=== PATIENT | male | born 1960 | race Caucasian/White ===

== ENCOUNTER 2020-01-08 14:05 | Emergency (ER) | payer SELFPAY ==
[~2020-01-08] VITALS: Ht 167 cm; Wt 84.0 kg
[2020-01-08 15:09] LABS: BASOPHILS # (AUTO) 0.1 10^3/uL (0.0-0.1); BASOPHILS % (AUTO) 1 % (0-10); EOSINOPHILS # (AUTO) 0.2 10^3/uL (0.0-0.3); EOSINOPHILS % (AUTO) 2 % (0-10); HEMATOCRIT 43 % (40-54); HEMOGLOBIN 15.2 G/DL (13.3-17.7); LYMPHOCYTES # (AUTO) 1.6 X 10^3 (1.0-4.0); LYMPHOCYTES % (AUTO) 20 % (12-44); MEAN CORPUSCULAR HEMOGLOBIN 31 PG (25-34); MEAN CORPUSCULAR HGB CONC 35 G/DL (32-36); MEAN CORPUSCULAR VOLUME 87 FL (80-99); MEAN PLATELET VOLUME 11.8 FL (7.4-10.4); MONOCYTES % (AUTO) 12 % (0-12); NEUTROPHILS # (AUTO) 5.1 X 10^3 (1.8-7.8); NEUTROPHILS % (AUTO) 65 % (42-75); PLATELET COUNT 157 10^3/uL (130-400); RED CELL DISTRIBUTION WIDTH 12.6 % (10.0-14.5); WHITE BLOOD COUNT 7.8 10^3/uL (4.3-11.0)
[2020-01-08 15:19] LABS: INR 0.9 (0.8-1.4); PROTHROMBIN TIME PATIENT 12.9 SEC (12.2-14.7)
--- NOTE | 2020-01-08 15:20 | Diagnostic Imaging Report ---
INDICATION: Chest and left arm pain. FINDINGS: Two views. Lungs are clear. No air-trapping. Heart is not enlarged. No pulmonary edema. No pneumothorax or pleural effusion. No bony abnormalities. IMPRESSION: Normal PA and lateral chest. Dictated by: Dictated on workstation # [id number]
[2020-01-08 15:29] LABS: ALANINE AMINOTRANSFERASE 25 U/L (0-55); ALBUMIN 4.3 GM/DL (3.2-4.5); ALKALINE PHOSPHATASE 80 U/L (40-136); BILIRUBIN,TOTAL 0.4 MG/DL (0.1-1.0); BUN/CREATININE RATIO 14; CALCIUM 9.6 MG/DL (8.5-10.1); CARBON DIOXIDE 26 MMOL/L (21-32); CHLORIDE 102 MMOL/L (98-107); GFR ESTIMATED > 60; GLUCOSE 96 MG/DL (70-105); MAGNESIUM 2.1 MG/DL (1.6-2.4); POTASSIUM 4.3 MMOL/L (3.6-5.0); SODIUM 137 MMOL/L (135-145)
[2020-01-08] MEDS ORDERED: ASPIRIN 81 MG CHEW (CHILDREN'S ASA) PO ONE (16:30)
--- NOTE | 2020-01-08 17:14 | ED Chest Pain ---
General Chief Complaint: Cardiac/General Problems Stated Complaint: TIRED/SOB AND CP ON AND OFF X 6 MONTHS Nursing Triage Note: pt presents to ed with complaints of intermittent cp, malaise, weakness, soa, and l arm pain x 6 months. Nursing Sepsis Screen: No Definite Risk Source: patient Exam Limitations: no limitations History of Present Illness Date Seen by Provider: Jan 08, 2020 Time Seen by Provider: 15:59 Initial Comments This 59-year-old gentleman presents to the emergency room with complaints of chest pain intermittently for about the past 6 months. Yesterday he was digging a hole and noted the chest pain to get worse. He also has pain in the left arm and shoulder but notes that this is only present when he moves his shoulder and therefore seems more musculoskeletal in nature. He also describes increasing shortness of air in the past several months especially with activity. He has generally been feeling more fatigued recently. He denies any alcohol or tobacco use. He was previously an alcoholic and quit about 10 years ago. He had a brief relapse about 18 months ago for about one week. He quit smoking in 2009. He now chews tobacco. He is not experiencing chest pain at present. His primary care provider is the [facility] in [place]. He denies any known cardiac history. He has tentatively been diagnosed with COPD. Allergies and Home Medications Allergies Coded Allergies: No Known Drug Allergies (Unverified , 01/08/20) Home Medications No Active Prescriptions or Reported Meds Patient Home Medication List Home Medication List Reviewed: Yes Review of Systems Review of Systems Constitutional: no symptoms reported EENTM: No Symptoms Reported Respiratory: See HPI Cardiovascular: See HPI Gastrointestinal: No Symptoms Reported Genitourinary: No Symptoms Reported Musculoskeletal: see HPI Skin: no symptoms reported Psychiatric/Neurological: No Symptoms Reported Endocrine: No Symptoms Reported Hematologic/Lymphatic: No Symptoms Reported Past Ljjuica-Tvsuua-Xofnmu Hx Past Med/Social Hx: Reviewed and Corrections made Patient Social History Alcohol Use: Denies Use Recreational Drug Use: No Smoking Status: Former Smoker Type Used: Smokeless Tobacco Former Smoker, Quit: Dec 28, 2018 Recent Foreign Travel: No Contact w/Someone Who Travel: No Recent Infectious Disease Expo: No Recent Hopitalizations: No Physical Abuse: No Sexual Abuse: No Mistreated: No Fear: No Seasonal Allergies Seasonal Allergies: No Past Medical History Surgeries: Yes (cervical sx) Appendectomy, Orthopedic Respiratory: Yes COPD Cardiac: No Neurological: No Genitourinary: No Gastrointestinal: No Musculoskeletal: Yes Fractures (Cervical spine fracture status post external fixation with halo) Endocrine: No HEENT: No Cancer: No Psychosocial: Yes Depression Integumentary: No Physical Exam Vital Signs Vital Signs - First Documented 01/08/20 14:20 Temp 36.8 Pulse 54 Resp 18 B/P (MAP) 137/84 (101) Pulse Ox 97 Capillary Refill : Less Than 3 Seconds Height, Weight, BMI Height: '" Weight: lbs. oz. kg; 30.00 BMI Method: General Appearance: No Apparent Distress, WD/WN HEENT: PERRL/EOMI, Normal ENT Inspection Neck: Normal Inspection; No JVD Respiratory: Lungs Clear, Normal Breath Sounds, No Accessory Muscle Use, No Respiratory Distress Cardiovascular: Regular Rate, Rhythm, No Edema, No Murmur, Normal Peripheral Pulses Gastrointestinal: Normal Bowel Sounds, Non Tender, Soft Extremity: Normal Inspection, Calf Tenderness (Left calf), Other (Left shoulder pain with range of motion) Neurologic/Psychiatric: Alert, Oriented x3, No Motor/Sensory Deficits, Normal Mood/Affect, oxygen therapist II-XII Norm as Tested Skin: Normal Color, Warm/Dry Progress/Results/Core Measures Results/Orders Lab Results Laboratory Tests Test 01/08/20 14:55 Range/Units White Blood Count 7.8 4.3-11.0 10^3/uL Red Blood Count 4.93 4.35-5.85 10^6/uL Hemoglobin 15.2 13.3-17.7 G/DL Hematocrit 43 40-54 % Mean Corpuscular Volume 87 80-99 FL Mean Corpuscular Hemoglobin 31 25-34 PG Mean Corpuscular Hemoglobin Concent 35 32-36 G/DL Red Cell Distribution Width 12.6 10.0-14.5 % Platelet Count 157 130-400 10^3/uL Mean Platelet Volume 11.8 H 7.4-10.4 FL Neutrophils (%) (Auto) 65 42-75 % Lymphocytes (%) (Auto) 20 12-44 % Monocytes (%) (Auto) 12 0-12 % Eosinophils (%) (Auto) 2 0-10 % Basophils (%) (Auto) 1 0-10 % Neutrophils # (Auto) 5.1 1.8-7.8 X 10^3 Lymphocytes # (Auto) 1.6 1.0-4.0 X 10^3 Monocytes # (Auto) 1.0 0.0-1.0 X 10^3 Eosinophils # (Auto) 0.2 0.0-0.3 10^3/uL Basophils # (Auto) 0.1 0.0-0.1 10^3/uL Prothrombin Time 12.9 12.2-14.7 SEC INR Comment 0.9 0.8-1.4 Activated Partial Thromboplast Time 29 24-35 SEC D-Dimer 0.21 0.00-0.49 UG/ML Sodium Level 137 135-145 MMOL/L Potassium Level 4.3 3.6-5.0 MMOL/L Chloride Level 102 98-107 MMOL/L Carbon Dioxide Level 26 21-32 MMOL/L Anion Gap 9 5-14 MMOL/L Blood Urea Nitrogen 15 7-18 MG/DL Creatinine 1.10 0.60-1.30 MG/DL Estimat Glomerular Filtration Rate > 60 BUN/Creatinine Ratio 14 Glucose Level 96 70-105 MG/DL Calcium Level 9.6 8.5-10.1 MG/DL Corrected Calcium 9.4 8.5-10.1 MG/DL Magnesium Level 2.1 1.6-2.4 MG/DL Total Bilirubin 0.4 0.1-1.0 MG/DL Aspartate Amino Transf (AST/SGOT) 21 5-34 U/L Alanine Aminotransferase (ALT/SGPT) 25 0-55 U/L Alkaline Phosphatase 80 40-136 U/L Myoglobin 54.2 10.0-92.0 NG/ML Troponin I < 0.028 <0.028 NG/ML C-Reactive Protein High Sensitivity 0.20 0.00-0.50 MG/DL B-Type Natriuretic Peptide 15.5 <100.0 PG/ML Total Protein 7.0 6.4-8.2 GM/DL Albumin 4.3 3.2-4.5 GM/DL My Orders Orders - MARKO DUENAS MD Cbc With Automated Diff (01/08/20 14:34) Magnesium (01/08/20 14:34) Ekg Tracing (01/08/20 14:34) Comprehensive Metabolic Panel (01/08/20 14:34) Myoglobin Serum (2/16/20 14:34) Protime With Inr (01/08/20 14:34) Partial Thromboplastin Time (01/08/20 14:34) O2 (01/08/20 14:34) Monitor-Rhythm Ecg Trace Only (01/08/20 14:34) Ed Iv/Invasive Line Start (01/08/20 14:34) BNP (01/08/20 14:34) Chest Pa/Lat (2 View) (01/08/20 14:34) Hs C Reactive Protein (01/08/20 14:34) Troponin I (01/08/20 14:34) Fibrin Degradation Products (01/08/20 16:15) Aspirin Chewable Tablet (Baby Aspirin Ch (01/08/20 16:30) Medications Given in ED Current Medications Medications Dose Ordered Sig/Carloz Route Start Time Stop Time Status Last Admin Dose Admin Aspirin 324 mg ONCE ONCE PO 01/08/20 16:30 01/08/20 16:31 DC 01/08/20 16:29 324 MG Vital Signs/I&O 01/08/20 01/08/20 14:20 17:20 Temp 36.8 Pulse 54 87 Resp 18 20 B/P (MAP) 137/84 (101) 136/93 Pulse Ox 97 98 Blood Pressure Mean: 101 Progress Progress Note : Progress Note Chest pain workup was pursued. Aspirin was given. Workup was unremarkable. Patient did report tenderness in the left calf. D-dimer was obtained and was negative. Case was discussed with Dr. Kaba who recommended close follow-up in the clinic. See discharge instructions. Initial ECG Impression Date: Jan 08, 2020 Initial ECG Impression Time: 14:30 Initial ECG Rate: 54 Initial ECG Rhythm: Normal Sinus Initial ECG Intervals: Normal Initial ECG Impression: Normal Comment Normal sinus rhythm with no ST elevation or depression. No abnormal intervals or axis deviation. Diagnostic Imaging Diagonstic Imaging: Xray Plain Films/CT/US/NM/MRI: chest Comments NAME: JARETT ALEXANDRE MED REC#: [id number] PT STATUS: REG ER : 1960 PHYSICIAN: MARKO DUENAS MD ADMIT DATE: 01/08/20/ER Signed Date of Exam:01/08/20 CHEST PA/LAT (2 VIEW) INDICATION: Chest and left arm pain. FINDINGS: Two views. Lungs are clear. No air-trapping. Heart is not enlarged. No pulmonary edema. No pneumothorax or pleural effusion. No bony abnormalities. IMPRESSION: Normal PA and lateral chest. Dictated by: Dictated on workstation # [id number] Dict: 01/08/20 1515 Trans: 01/08/20 1544 [id number] Interpreted by: TANNA PENA MD Electronically signed by: TANNA PENA MD 01/08/20 1544 Departure Impression Primary Impression: Chest pain Qualified Codes: R07.9 - Chest pain, unspecified Additional Impression: Dyspnea on exertion Disposition: HOME, SELF-CARE Condition: Stable Departure-Patient Inst. Decision time for Depature: 17:13 Referrals: MISAEL KABA MD ,LOCAL PHYSICIAN (PCP) Primary Care Physician Patient Instructions: Chest Pain (DC) Add. Discharge Instructions: Take aspirin 81 mg daily. Follow-up with Dr. Kaba (hearing examiner) and your primary care provider as soon as possible. Please call Dr. Kaba's office first thing tomorrow morning. If you have any further chest pain, please rest and stop whenever you're doing. If pain does not resolve after a few minutes, return to the emergency room. Return to care if you have any further problems or concerns. All discharge instructions reviewed with patient and/or family. Voiced understanding. Scripts No Active Prescriptions or Reported Meds Copy Copies To 1: COTY BRANTLEY DO Copies To 2: MISAEL KABA MD, JOSHUA T MD Jan 08, 2020 17:14
[2020-01-08 17:20] VITALS: BP 136/93
== END 2020-01-08 17:20 | disposition home or self-care (01) ==
LOC: EDUNIT# 14:05 → ER 14:07
DX: R07.9 Chest pain, unspecified (principal); R06.09 Other forms of dyspnea; F17.220 Nicotine dependence, chewing tobacco, uncomplicated
CPT/HCPCS: 36415; 71046; 80053; 83735; 83874; 83880; 84484; 85025; 85379; 85610; 85730; 86141; 93005; 93041

== ENCOUNTER → 2020-01-25 | Outpatient (CLI) | payer OTHER ==
[~2020-01-25] VITALS: Ht 165 cm; Wt 91.0 kg
[~2020-01-25] MED LIST: CATHETER FLUSH 10 ML SYR IV PRN; REGADENOSON 0.4 MG/5 ML SYR (LEXISCAN) IV ONE
[2020-01-25 08:50] VITALS: BP 112/77
--- NOTE | 2020-01-25 19:00 | STRESS TEST ---
DATE OF SERVICE: 01/25/2020 LEXISCAN MYOVIEW STRESS TEST REPORT Baseline heart rate is 46. Baseline blood pressure 106/81. Baseline EKG is sinus rhythm with no ischemic changes. In summary, the patient was initially scheduled for exercise stress test, was unable to achieve target heart rate. Test was converted to Lexiscan Myoview stress test. The patient received 0.4 mg of Lexiscan followed by 30.9 mCi of technetium-99 Myoview. Throughout the test, there were no EKG changes. The resting and stress images were reviewed and compared. There is no significant ischemia or infarction. SSS is 3, SDS 1. TID value 0.93. On the gated images, the left ventricle appeared to be normal size with normal contractility. Calculated ejection fraction 62%. CONCLUSION: 1. The patient tolerated Lexiscan well. 2. No significant ischemia or infarction on SPECT images. 3. Normal left ventricular size with normal contractility. Calculated ejection fraction 62%. Job ID: [id number] DocumentID: [id number] Dictated Date: 01/25/2020 16:00:28 Garment Liner Date: 01/25/2020 18:59:54 Dictated By: MISAEL JUAN MD
== END ==
LOC: CARD 07:14
PROVIDERS: ATTEND Internal Medicine Cardiovascular Disease
DX: I10 Essential (primary) hypertension (principal); E66.9 Obesity, unspecified; R07.89 Other chest pain; R06.09 Other forms of dyspnea
CPT/HCPCS: 78452; 93017

== ENCOUNTER → 2020-01-27 | Outpatient (CLI) | payer OTHER | LOC: CARD 09:40 | PROVIDERS: ATTEND Internal Medicine Cardiovascular Disease | DX: I10 Essential (primary) hypertension (principal); E66.9 Obesity, unspecified; R07.89 Other chest pain; R06.09 Other forms of dyspnea | CPT/HCPCS: 93306 ==

== ENCOUNTER → 2020-03-28 | Outpatient (CLI) | payer MEDICAID ==
[~2020-03-28] MED LIST changes: -CATHETER FLUSH 10 ML SYR IV PRN; +HOLD METFORMIN - RECEIVED CONTRAST 20 ML VIAL IV SCH; +IOHEXOL 350 MG/ML 100 ML (OMNIPAQUE 350) VIAL IV ONE; +NS 100 ML (IVPB) BAG IV ONE; -REGADENOSON 0.4 MG/5 ML SYR (LEXISCAN) IV ONE
[2020-03-28 07:49] LABS: CREATININE SERUM 1.23 MG/DL (0.60-1.30)
--- NOTE | 2020-03-28 09:10 | Diagnostic Imaging Report ---
PROCEDURE: CT chest with contrast only. TECHNIQUE: Multiple contiguous axial images were obtained through the chest after administration of intravenous contrast. Auto Exposure Controls were utilized during the CT exam to meet ALARA standards for radiation dose reduction. INDICATION: Shortness of breath on exertion. FINDINGS: There are no discrete pulmonary nodules, masses or infiltrates. There is no pleural or pericardial fluid. There is no pneumothorax. There is no pathologically enlarged adenopathy in the chest. Ascending aorta measures up to 3.9 cm. There is no dissection. There are minimal coronary artery calcifications. There are several nonobstructing stones in the right kidney. Largest measures up to 1.2 cm. There are degenerative changes in the spine. IMPRESSION: Enlargement of the ascending aorta up to 3.9 cm. Minimal coronary artery calcifications. Nonobstructing right renal calculi. No other acute abnormality in the chest. Dictated by: Dictated on workstation # [id number]
== END ==
LOC: RAD 07:15
PROVIDERS: ATTEND Nurse Practitioner Family
DX: J44.9 Chronic obstructive pulmonary disease, unspecified (principal); R06.09 Other forms of dyspnea; Z87.891 Personal history of nicotine dependence; N20.0 Calculus of kidney
CPT/HCPCS: 36415; 71260; 82565; 84520

== ENCOUNTER → 2020-04-09 | Outpatient (CLI) | payer MEDICAID ==
[~2020-04-09] MED LIST changes: -HOLD METFORMIN - RECEIVED CONTRAST 20 ML VIAL IV SCH; -IOHEXOL 350 MG/ML 100 ML (OMNIPAQUE 350) VIAL IV ONE; -NS 100 ML (IVPB) BAG IV ONE; +RT-ALBUTEROL SULF 2.5 MG/3 ML PRE-MIX VIAL INH ONE; +RT-ALBUTEROL SULF 2.5 MG/3 ML PRE-MIX VIAL ONE
[2020-04-09 09:31] LABS: ABG OXYGEN SATURATION 98 % (94-100); ABG PCO2 39 MMHG (35-45); ABG PH 7.39 (7.37-7.43); ABG PO2 92 MMHG (79-93); ABG TCO2 24.6 MMOL/L (21.0-31.0)
[2020-04-09 09:32] LABS: ALLENS TEST YES-POS; INSPIRED O2 ROOM AIR; PATIENT TEMP 36.2; VENTILATOR NO
== END ==
LOC: RT 07:36
PROVIDERS: ATTEND Nurse Practitioner Family
DX: J44.9 Chronic obstructive pulmonary disease, unspecified (principal); Z87.891 Personal history of nicotine dependence
CPT/HCPCS: 36600; 82805; 94060; 94726; 94729

== ENCOUNTER → 2020-07-24 | Outpatient (CLI) | payer OTHER ==
--- NOTE | 2020-07-24 12:53 | Diagnostic Imaging Report ---
INDICATION: Chronic low back pain. FINDINGS: The alignment of the lumbar spine is normal. There are some degenerative osteophytes anteriorly. There is lower lumbar hypertrophic degenerative facet disease. There is no spondylolysis or spinal listhesis. No fractures are identified. There is a stone in the right kidney. IMPRESSION: Lower lumbar spondylosis and facet disease as described. Right nephrolithiasis. Dictated by: Dictated on workstation # [id number]
== END ==
LOC: RAD 10:20
PROVIDERS: ATTEND Family Medicine
DX: M47.816 Spondylosis without myelopathy or radiculopathy, lumbar region (principal); M46.96 Unspecified inflammatory spondylopathy, lumbar region
CPT/HCPCS: 72100

== ENCOUNTER → 2020-09-03 | Outpatient (CLI) | payer MEDICAID | LOC: LABNPT 05:41 | PROVIDERS: ATTEND Nurse Practitioner Family | DX: Z01.812 Encounter for preprocedural laboratory examination (principal); Z20.828 Contact with and (suspected) exposure to other viral communicable diseases | CPT/HCPCS: 87635 ==

== ENCOUNTER → 2020-09-24 | Outpatient (CLI) | payer MEDICAID | LOC: LABNPT 08:21 | PROVIDERS: ATTEND Internal Medicine Critical Care Medicine | DX: Z01.812 Encounter for preprocedural laboratory examination (principal); Z20.828 Contact with and (suspected) exposure to other viral communicable diseases | CPT/HCPCS: 87635 ==

== ENCOUNTER 2020-09-26 19:30 | Outpatient (CLI) | payer MEDICAID | END 2020-09-27 05:25 | disposition home or self-care (01) | LOC: SLEEP 19:30 | PROVIDERS: ATTEND Nurse Practitioner Family | DX: G47.50 Parasomnia, unspecified (principal); G47.10 Hypersomnia, unspecified; J44.9 Chronic obstructive pulmonary disease, unspecified; Z20.828 Contact with and (suspected) exposure to other viral communicable diseases | CPT/HCPCS: 95810 ==

== ENCOUNTER 2020-11-01 21:43 | Emergency (ER) | payer MEDICAID ==
[~2020-11-01] VITALS: Ht 167.7 cm; Wt 84.8 kg
[2020-11-01] MEDS ORDERED: FLUORESCEIN (FLUOR-I-STRIPS) 1 MG STRP ONE (21:58)
[2020-11-01] MEDS ORDERED: TETRACAINE 0.5% OPHTH SOLN 4 ML BTL (SINGLE DOSE ONLY) OU ONE (22:00)
[2020-11-01] MEDS ORDERED: BSS 15 ML IR ONE (22:00)
[2020-11-01] MEDS ORDERED: FLUORESCEIN (FLUOR-I-STRIPS) 1 MG STRP OU ONE (22:00)
--- NOTE | 2020-11-01 22:44 | ED EENT ---
History of Present Illness General Chief Complaint: Eye Problems Stated Complaint: PIECE OF METAL IN EYE Source: patient Exam Limitations: no limitations History of Present Illness Date Seen by Provider: Nov 01, 2020 Time Seen by Provider: 21:55 Initial Comments This 60-year-old gentleman presents to the emergency room with sensation of foreign body in his right eye. It is very irritating to blink. He was grinding some metal earlier in the day without eye protection. Then while he was watching TV he suddenly developed the pain. Allergies and Home Medications Allergies Coded Allergies: No Known Drug Allergies (Unverified , 01/08/20) Patient Home Medication List Home Medication List Reviewed: Yes Review of Systems Review of Systems Constitutional: no symptoms reported Eyes: See HPI Ears: No Symptoms Reported Nose: no symptoms reported Mouth: no symptoms reported Throat: no symptoms reported Skin: no symptoms reported Neurological: No Symptoms Reported Past Xkecqik-Mauhix-Zukdno Hx Past Med/Social Hx: Reviewed Nursing Past Med/Soc Hx Patient Social History Type Used: Smokeless Tobacco Former Smoker, Quit: Dec 28, 2018 Recent Foreign Travel: No Contact w/Someone Who Travel: No Recent Hopitalizations: No Seasonal Allergies Seasonal Allergies: No Past Medical History Surgeries: Yes (cervical sx) Appendectomy, Orthopedic Respiratory: Yes COPD Cardiac: No Neurological: No Genitourinary: No Gastrointestinal: No Musculoskeletal: Yes Fractures Endocrine: No HEENT: No Cancer: No Psychosocial: Yes Depression Integumentary: No Physical Exam Vital Signs Vital Signs - First Documented 11/01/20 21:55 Temp 36.6 Pulse 66 Resp 18 B/P (MAP) 145/84 (104) Pulse Ox 96 Height, Weight, BMI Height: '" Weight: lbs. oz. kg; 33.42 BMI Method: General Appearance: WD/WN, no apparent distress Eyes: right eye other (Mild scleral irritation. 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 Eye was anesthetized with tetracaine. The eye was then examined under magnification. Foreign body was identified under the lateral aspect of the upper eyelid when it was lifted. Balanced saline was used to irrigate the space but did not successfully remove the foreign body. Foreign body was then lifted with a sterile Q-tip. Eye was again irrigated and patient was discharged. Departure Impression Primary Impression: Eye foreign body Qualified Codes: T15.92XA - Foreign body on external eye, part unspecified, left eye, initial encounter Disposition: 01 HOME, SELF-CARE Condition: Improved Departure-Patient Inst. Decision time for Depature: 22:43 Referrals: [facility] (PCP/Family) Primary Care Physician Patient Instructions: Foreign Body in Eye (DC) Add. Discharge Instructions: Your pain should gradually improve now that the foreign body is removed. You may use artificial tears liberally to help lubricate your eye. If pain does not progressively improve or you have worsening of symptoms, please return to the ER or call your eye doctor. All discharge instructions reviewed with patient and/or family. Voiced understanding. MARKO DUENAS MD Nov 01, 2020 22:43
[2020-11-01 22:50] VITALS: BP 141/73
== END 2020-11-01 22:53 | disposition home or self-care (01) ==
LOC: EDUNIT# 21:43 → ER 21:45
DX: T15.11XA Foreign body in conjunctival sac, right eye, initial encounter (principal); Z87.891 Personal history of nicotine dependence; W45.8XXA Other foreign body or object entering through skin, initial encounter
CPT/HCPCS: 99282

== ENCOUNTER 2020-12-11 20:43 | Emergency (ER) | payer MEDICAID ==
[~2020-12-11] VITALS: Ht 65 cm; Wt 90.0 kg
[2020-12-11 20:46] VITALS: BP 142/83
--- NOTE | 2020-12-11 21:09 | ED GU-Female ---
General Chief Complaint: - Urinary Stated Complaint: URINARY PAIN, HARD TO URINATE Nursing Triage Note: went to clinic yesterday bc he is having trouble urinating. He was put on antibiotics. Today is much worse. He has the frequent urge then doesn't get much output. Pt states there is pain when he tries to urinate. Denies bleeding. Nursing Sepsis Screen: No Definite Risk Source: patient Exam Limitations: no limitations History of Present Illness Date Seen by Provider: Dec 11, 2020 Time Seen by Provider: 20:55 Initial Comments Patient arrives ER by private conveyance with chief complaint that yesterday he went to [facility] with chief complaint of a days worth of difficulty urinating burning pain. He is never had these problems before. No history of prostatitis. Does not know a urologist. He is not on Flomax. They put him on Bactrim thinking he might have prostatitis and told him to come back if it was not getting better or he was unable to urinate. Today he has not been able to urinate more than just a few drops and has increasing pressure and pain. Allergies and Home Medications Allergies Coded Allergies: No Known Drug Allergies (Unverified , 01/08/20) Patient Home Medication List Home Medication List Reviewed: Yes Review of Systems Review of Systems Constitutional: No chills, No diaphoresis EENTM: No ear discharge, No ear pain Respiratory: No cough, No short of breath Cardiovascular: No chest pain, No palpitations Gastrointestinal: abdominal pain; No constipation, No diarrhea, No nausea, No vomiting Genitourinary: see HPI, dysuria, frequency, pain Musculoskeletal: No back pain, No joint pain All Other Systemes Reviewed Negative Unless Noted: Yes Past Rkmzamg-Whorkp-Ehudei Hx Patient Social History Alcohol Use: Denies Use Smoking Status: Former Smoker Type Used: Smokeless Tobacco Former Smoker, Quit: Dec 28, 2018 Recent Infectious Disease Expo: No Recent Hopitalizations: No Seasonal Allergies Seasonal Allergies: No Past Medical History Surgeries: Yes (cervical sx) Appendectomy, Orthopedic Respiratory: Yes COPD Cardiac: No Neurological: No Genitourinary: No Gastrointestinal: No Musculoskeletal: Yes Fractures Endocrine: No HEENT: No Cancer: No Psychosocial: Yes Depression Integumentary: No Blood Disorders: No Physical Exam Vital Signs Vital Signs - First Documented 12/11/20 20:46 Temp 36.5 Pulse 70 Resp 20 B/P (MAP) 142/83 (102) Pulse Ox 97 O2 Delivery Room Air Capillary Refill : Less Than 3 Seconds Height, Weight, BMI Height: '" Weight: lbs. oz. kg; 213.00 BMI Method: General Appearance: WD/WN, no apparent distress HEENT: PERRL/EOMI, normal ENT inspection Neck: full range of motion, supple, normal inspection Cardiovascular: normal peripheral pulses, regular rate, rhythm Respiratory: lungs clear, normal breath sounds, no respiratory distress, no accessory muscle use Gastrointestinal: normal bowel sounds, soft, no organomegaly, tenderness (Mild suprapubic tenderness without palpable bladder) Progress/Results/Core Measures Suspected Sepsis Recent Fever Within 48 Hours: No Infection Criteria Present: Suspected New Infection New/Unexplained Altered Menta: No Sepsis Screen: No Definite Risk SIRS Temperature: Pulse: 70 Respiratory Rate: 20 Blood Pressure 142 /83 Mean: 102 Results/Orders My Orders Orders - BINH BAÑUELOS Ua Culture If Indicated (12/11/20 20:51) Catheter(Urinary) Insert & Ass 03,15 (12/11/20 20:51) Bladder Scan (12/11/20 20:59) Vital Signs/I&O 12/11/20 20:46 Temp 36.5 Pulse 70 Resp 20 B/P (MAP) 142/83 (102) Pulse Ox 97 O2 Delivery Room Air Capillary Refill : Less Than 3 Seconds Blood Pressure Mean: 102 Progress Note : Time: 21:10 Progress Note Aseptic vital signs. No palpable bladder. Bladder scanner shows 77 mL at greatest diameter. We will give him a dose of Rocephin tonight put him on Flomax and have him follow-up with urology in the clinic. Return precautions were given. Departure Impression Primary Impression: Prostatitis, acute Disposition: HOME, SELF-CARE Condition: Stable Departure-Patient Inst. Decision time for Depature: 21:11 Referrals: [facility] (PCP/Family) Primary Care Physician JEFF ANTONIO MD Patient Instructions: Prostatitis (DC) Add. Discharge Instructions: Drink plenty of fluids and continue to use Tylenol for discomfort. Continue to take the antibiotics as prescribed with food. Flomax 1 capsule at nighttime to help you urinate easier. Return to the ER if you are unable to produce urine or having increasing, intractable pain despite Tylenol and Motrin. Plan to follow-up with urology in the next several weeks after your infection subsides. All discharge instructions reviewed with patient and/or family. Voiced understanding. Scripts Tamsulosin HCl (Flomax) 0.4 Mg Cap 0.4 MG PO HS for 14 Days, #14 CAP 0 Refills Prov: BINH BAÑUELOS 12/11/20 Copy Copies To 1: JEFF ANTONIO MD, TITUS J Dec 11, 2020 21:09
[2020-12-11] MEDS ORDERED: TMSL.4C PO (21:12)
[2020-12-11] MEDS ORDERED: TAMSULOSIN 0.4 MG (FLOMAX) CAP PO ONE (21:19)
[2020-12-11] MEDS ORDERED: LIDOCAINE 1% INJ 20 ML 20 ML VIAL INJ ONE (21:30)
[2020-12-11] MEDS ORDERED: cefTRIAXone 1,000 MG/2.86 ml vial (IM ONLY) IM ONE (21:30)
[2020-12-12] MEDS ORDERED: TAMSULOSIN 0.4 MG (FLOMAX) CAP PO SCH (18:00)
== END 2020-12-11 21:30 | disposition home or self-care (01) ==
LOC: EDUNIT# 20:43 → ER 20:46
DX: N41.0 Acute prostatitis (principal); Z87.891 Personal history of nicotine dependence
CPT/HCPCS: 99284

== ENCOUNTER → 2021-01-23 | Outpatient (CLI) | payer MEDICAID ==
[~2021-01-23] MED LIST changes: -RT-ALBUTEROL SULF 2.5 MG/3 ML PRE-MIX VIAL INH ONE; -RT-ALBUTEROL SULF 2.5 MG/3 ML PRE-MIX VIAL ONE; +TMSL.4C PO
--- NOTE | 2021-01-23 09:41 | Diagnostic Imaging Report ---
PROCEDURE: US Renal Bilateral. TECHNIQUE: Multiple real-time grayscale images were obtained over the kidneys in various projections bilaterally. INDICATION: Renal failure Right kidney measures 11.4 x 5.2 x 4.8 cm. Kidney measures 11.5 x 5.6 x 5.7 centers. There is a 1.3 cm calculus in an upper pole of the right kidney. There are 2 small cortical cysts in the left kidney. Urinary bladder appears normal. IMPRESSION: Right nephrolithiasis. There is thinning of the renal cortex bilaterally suggesting medical renal disease. Dictated by: Dictated on workstation # [id number]
== END ==
LOC: RAD 08:00
PROVIDERS: ATTEND Urology
DX: N18.30 Chronic kidney disease, stage 3 unspecified (principal); N20.0 Calculus of kidney
CPT/HCPCS: 76770

== ENCOUNTER 2022-04-29 15:08 | Emergency (ER) | payer MEDICAID ==
[~2022-04-29] VITALS: Ht 167.7 cm; Wt 84.8 kg
[2022-04-29] MEDS ORDERED: FOLIC ACID 1 MG TAB PO ONE (16:30)
[2022-04-29] MEDS ORDERED: THIAMINE 100 MG (VITAMIN B-1) TAB PO ONE (16:30)
--- NOTE | 2022-04-29 16:48 | ED Psychosocial ---
General Chief Complaint: Detox Stated Complaint: DETOX Nursing Triage Note: states he knows he has a drinking problem and he says he knows it will kill him. verballizes he does not have a plan to hurt himself or any one else. struggling with depression and alcohol addiction. verbalizes he has known for years he has addiction to alcohol. states he has a job adn outpatient rehab would be best for him for treatment of his alcoholism and depression. Source: patient, other (Family friend known as sister and her ) Exam Limitations: no limitations (BINH BAÑUELOS) History of Present Illness Date Seen by Provider: Apr 29, 2022 Time Seen by Provider: 16:24 Initial Comments Patient presents the ER by private conveyance from home with his sister and chief complaint that for the past month he has been drinking and had a suicidal ideation according to his family friend who he calls his sister. He says 3 years ago his actual sister and he kind of assumed her as his sister. He was at his house and she was present and he took a mouthful of approximately 15 tablets of cyclobenzaprine but she made him spit them out. When asked why he did that he says so he would be taken back to her farm to live. When asked if he thought that they would kill him he said yes and but he said he was not afraid of dying because he knew she would make him spit them out. He denies being suicidal. He states he was merely trying to manipulate her into taking him back to the apartment. He has been involved in AA and even has a 15-year coin. He denies using other recreational drugs. He does smoke cigarettes. He chews tobacco and drinks anywhere up to 30 or more beers in an evening. Last drink was just before coming. His sister called [employer] last night and reported him and called the weaving machine operator this morning who encouraged him strongly to come out to the ER and be screened or else they would take him into protective custody. The patient has been an osteotomy at least 3 times he states for inpatient alcoholism treatment. He is also been in a inpatient facility in [place] but he cannot member the name. He denies being inpatient for suicidal ideation. He endorses being depressed. He has a medication for depression that he does not take. He follows at [facility]. (BINH BAÑUELOS) Allergies and Home Medications Allergies Coded Allergies: No Known Drug Allergies (Unverified , 01/08/20) Patient Home Medication List Home Medication List Reviewed: Yes (LUIZA JUNIOR MD) Tamsulosin HCl (Flomax) 0.4 Mg Cap, 0.4 MG PO HS Prescribed by: BINH BAÑUELOS on 12/11/202111 Review of Systems Constitutional: No chills, No diaphoresis EENTM: No ear discharge, No hearing loss Respiratory: No cough, No dyspnea on exertion Cardiovascular: no symptoms reported Gastrointestinal: no symptoms reported Genitourinary: no symptoms reported Musculoskeletal: no symptoms reported Skin: no symptoms reported (BINH BAÑUELOS) All Other Systems Reviewed Negative Unless Noted: Yes (BINH BAÑUELOS) Past Zmovkjk-Uoyxmg-Pmhjlk Hx Patient Social History Tobacco Use?: Yes Smokeless Tobacco Frequency: Current Everyday User Substance use?: No Alcohol Use?: Yes Alcohol type: Beer Alcohol Frequency: Daily Pt feels they are or have been: No (BINH BAÑUELOS) Immunizations Up To Date First/Initial COVID19 Vaccinat: 2020 Second COVID19 Vaccination Paolo: 2020 COVID19 Vaccine Emergency Department Clinician: [facility] (BINH BAÑUELOS) Seasonal Allergies Seasonal Allergies: No (BINH BAÑUELOS) Past Medical History Surgeries: Yes (cervical sx) Appendectomy, Orthopedic Respiratory: Yes COPD Cardiac: No Neurological: No Genitourinary: No Gastrointestinal: No Musculoskeletal: Yes Fractures Endocrine: No HEENT: No Cancer: No Psychosocial: Yes Depression Integumentary: No Blood Disorders: No (BINH BAÑUELOS) Physical Exam Vital Signs - First Documented 04/29/22 15:50 Temp 36.6 Pulse 92 Resp 18 B/P (MAP) 141/86 (104) Pulse Ox 95 O2 Delivery Room Air (LUIZA JUNIOR MD) Capillary Refill : Less Than 3 Seconds (BINH BAÑUELOS) Height, Weight, BMI Height: '" Weight: lbs. oz. kg; 30.00 BMI Method: General Appearance: WD/WN, no apparent distress HEENT: PERRL/EOMI, pharynx normal Neck: full range of motion, normal inspection Respiratory: no respiratory distress, no accessory muscle use Cardiovascular: normal peripheral pulses, regular rate, rhythm Peripheral Pulses: 2+ Dorsalis Pedis (R), 2+ Left Dors-Pedis (L) Extremities: non-tender, normal inspection, normal capillary refill Neurologic/Psychiatric: manager psychology II-XII nml as tested, no motor/sensory deficits, alert, normal mood/affect, oriented x 3 Appearance/Memory: appropriate appearance, appropriate insight Behavior/Eye Contact: cooperative, good eye contact, normal speech (No slurred speech) Thoughts/Hallucinations: normal thought pattern, no apparent hallucination, other (Denies suicidal or homicidal ideation. States that his taking the pills was an attempt to manipulate his friend into taking him home and knew he would not because she would force him to spit the pills out.) Skin: normal color, warm/dry (BINH BAÑUELOS) Progress/Results/Core Measures Results/Orders Lab Results Laboratory Tests Test 04/29/22 16:40 04/29/22 16:48 Range/Units Urine Color YELLOW Urine Clarity CLEAR Urine pH 6.0 5-9 Urine Specific Mclean <=1.005 1.016-1.022 Urine Protein NEGATIVE NEGATIVE Urine Glucose (UA) NEGATIVE NEGATIVE Urine Ketones NEGATIVE NEGATIVE Urine Nitrite NEGATIVE NEGATIVE Urine Bilirubin NEGATIVE NEGATIVE Urine Urobilinogen 0.2 < = 1.0 MG/DL Urine Leukocyte Esterase NEGATIVE NEGATIVE Urine RBC (Auto) NEGATIVE NEGATIVE Urine RBC RARE /HPF Urine WBC 0-2 /HPF Urine Squamous Epithelial Cells NONE /HPF Urine Renal Epithelial Cells NONE /HPF Urine Crystals NONE /LPF Urine Bacteria NEGATIVE /HPF Urine Casts NONE /LPF Urine Mucus NEGATIVE /LPF Urine Culture Indicated NO Urine Opiates Screen NEGATIVE NEGATIVE Urine Oxycodone Screen NEGATIVE NEGATIVE Urine Methadone Screen NEGATIVE NEGATIVE Urine Propoxyphene Screen NEGATIVE NEGATIVE Urine Barbiturates Screen NEGATIVE NEGATIVE Ur Tricyclic Antidepressants Screen NEGATIVE NEGATIVE Urine Phencyclidine Screen NEGATIVE NEGATIVE Urine Amphetamines Screen NEGATIVE NEGATIVE Urine Methamphetamines Screen NEGATIVE NEGATIVE Urine Benzodiazepines Screen NEGATIVE NEGATIVE Urine Cocaine Screen NEGATIVE NEGATIVE Urine Cannabinoids Screen NEGATIVE NEGATIVE White Blood Count 7.2 4.3-11.0 10^3/uL Red Blood Count 5.20 4.30-5.52 10^6/uL Hemoglobin 15.9 13.3-17.7 g/dL Hematocrit 45 40-54 % Mean Corpuscular Volume 86 80-99 fL Mean Corpuscular Hemoglobin 31 25-34 pg Mean Corpuscular Hemoglobin Concent 36 32-36 g/dL Red Cell Distribution Width 12.7 10.0-14.5 % Platelet Count 144 130-400 10^3/uL Mean Platelet Volume 10.4 9.0-12.2 fL Immature Granulocyte % (Auto) 0 % Neutrophils (%) (Auto) 71 42-75 % Lymphocytes (%) (Auto) 20 12-44 % Monocytes (%) (Auto) 8 0-12 % Eosinophils (%) (Auto) 0 0-10 % Basophils (%) (Auto) 1 0-10 % Neutrophils # (Auto) 5.1 1.8-7.8 10^3/uL Lymphocytes # (Auto) 1.4 1.0-4.0 10^3/uL Monocytes # (Auto) 0.6 0.0-1.0 10^3/uL Eosinophils # (Auto) 0.0 0.0-0.3 10^3/uL Basophils # (Auto) 0.1 0.0-0.1 10^3/uL Immature Granulocyte # (Auto) 0.0 0.0-0.1 10^3/uL Percent Immature Platelet Fraction 7.5 0.0-7.6 % Sodium Level 135 135-145 MMOL/L Potassium Level 4.0 3.6-5.0 MMOL/L Chloride Level 96 L 98-107 MMOL/L Carbon Dioxide Level 21 21-32 MMOL/L Anion Gap 18 H 5-14 MMOL/L Blood Urea Nitrogen 6 L 7-18 MG/DL Creatinine 0.91 0.60-1.30 MG/DL Estimat Glomerular Filtration Rate 95 BUN/Creatinine Ratio 7 Glucose Level 134 H 70-105 MG/DL Calcium Level 8.4 L 8.5-10.1 MG/DL Corrected Calcium 8.2 L 8.5-10.1 MG/DL Total Bilirubin 0.6 0.1-1.0 MG/DL Aspartate Amino Transf (AST/SGOT) 38 H 5-34 U/L Alanine Aminotransferase (ALT/SGPT) 34 0-55 U/L Alkaline Phosphatase 98 40-136 U/L Total Protein 7.3 6.4-8.2 GM/DL Albumin 4.2 3.2-4.5 GM/DL Salicylates Level < 5.0 L 5.0-20.0 MG/DL Acetaminophen Level < 10 L 10-30 UG/ML Serum Alcohol 271 H <10 MG/DL (LUIZA JUNIOR MD) Medications Given in ED Current Medications Medications Dose Ordered Sig/Carloz Route Start Time Stop Time Status Last Admin Dose Admin Folic Acid 1 mg ONCE ONCE PO 04/29/22 16:30 04/29/22 16:31 DC 04/29/22 17:32 1 MG Thiamine HCl 100 mg ONCE ONCE PO 04/29/22 16:30 04/29/22 16:31 DC 04/29/22 17:32 100 MG (LUIZA JUNIOR MD) Vital Signs/I&O 04/29/22 15:50 Temp 36.6 Pulse 92 Resp 18 B/P (MAP) 141/86 (104) Pulse Ox 95 O2 Delivery Room Air (LUIZA JUNIOR MD) Blood Pressure Mean: 104 Progress Progress Note : Time: 18:49 Progress Note I spoke with the poultry farm worker who has evaluated the patient here in the ED. They have formulated a safety plan and he will go home with the individuals he came with this evening. He will go to [facility] in the morning for intake. All parties are in agreeance. He has a safe ride "home" and does not need repeat blood alcohol testing at this time. (LUIZA JUNIOR MD) Initial ECG Impression Date: Apr 29, 2022 Initial ECG Impression Time: 18:50 Initial ECG Rate: 101 Initial ECG Rhythm: S.Tach Initial ECG Intervals: Normal Initial ECG Impression: Normal (LUIZA JUNIOR MD) Transfer of Care Time: 18:00 Care transferred to: Dr. Junior (BINH BAÑUELOS) Departure Impression Primary Impression: Alcohol abuse Additional Impression: Passive suicidal ideations Disposition: 01 HOME, SELF-CARE Condition: Stable Departure-Patient Inst. Decision time for Depature: 18:52 (LUIZA JUNIOR MD) Referrals: [facility] (PCP/Family) Primary Care Physician Patient Instructions: Alcohol Use Disorder ED Add. Discharge Instructions: Please follow up with [facility] in the morning as discussed with Mental Health. Return to the ER for any new, concerning or emergent complaints. [facility] ?[address] [place] [address] BINH BAÑUELOS Apr 29, 2022 16:48 LUIZA JUNIOR MD Apr 29, 2022 18:55
[2022-04-29 17:10] LABS: BILIRUBIN,URINE NEGATIVE (NEGATIVE); CLARITY,URINE CLEAR; COLOR,URINE YELLOW; GLUCOSE, URINE (UA) NEGATIVE (NEGATIVE); KETONES,URINE NEGATIVE (NEGATIVE); LEUKOCYTE ESTERASE ,URINE NEGATIVE (NEGATIVE); NITRITE,URINE NEGATIVE (NEGATIVE); PROTEIN,URINE NEGATIVE (NEGATIVE)
[2022-04-29 17:10] LABS: BASOPHILS # (AUTO) 0.1 10^3/uL (0.0-0.1); BASOPHILS % (AUTO) 1 % (0-10); LYMPHOCYTES # (AUTO) 1.4 10^3/uL (1.0-4.0); LYMPHOCYTES % (AUTO) 20 % (12-44); MEAN CORPUSCULAR HGB CONC 36 g/dL (32-36); WHITE BLOOD COUNT 7.2 10^3/uL (4.3-11.0)
[2022-04-29 17:12] LABS: EOSINOPHILS % (AUTO) 0 % (0-10); HEMATOCRIT 45 % (40-54); HEMOGLOBIN 15.9 g/dL (13.3-17.7); MEAN CORPUSCULAR HEMOGLOBIN 31 pg (25-34); MEAN CORPUSCULAR VOLUME 86 fL (80-99); MEAN PLATELET VOLUME 10.4 fL (9.0-12.2); MONOCYTES # (AUTO) 0.6 10^3/uL (0.0-1.0); MONOCYTES % (AUTO) 8 % (0-12); NEUTROPHILS # (AUTO) 5.1 10^3/uL (1.8-7.8); NEUTROPHILS % (AUTO) 71 % (42-75); PLATELET COUNT 144 10^3/uL (130-400)
[2022-04-29 17:17] LABS: BACTERIA,URINE NEGATIVE /HPF; RBC,URINE RARE /HPF; WBC,URINE 0-2 /HPF
[2022-04-29 17:19] LABS: ALANINE AMINOTRANSFERASE 34 U/L (0-55); ALBUMIN 4.2 GM/DL (3.2-4.5); ALKALINE PHOSPHATASE 98 U/L (40-136); BILIRUBIN,TOTAL 0.6 MG/DL (0.1-1.0); BUN/CREATININE RATIO 7; CALCIUM 8.4 MG/DL (8.5-10.1); CARBON DIOXIDE 21 MMOL/L (21-32); CHLORIDE 96 MMOL/L (98-107); CREATININE SERUM 0.91 MG/DL (0.60-1.30); GFR ESTIMATED 95; GLUCOSE 134 MG/DL (70-105); SALICYLATE < 5.0 MG/DL (5.0-20.0); SODIUM 135 MMOL/L (135-145); TOTAL PROTEIN 7.3 GM/DL (6.4-8.2)
[2022-04-29 17:21] LABS: ACETAMINOPHEN < 10 UG/ML (10-30)
[2022-04-29 17:22] LABS: AMPHETAMINE SCREEN, URINE NEGATIVE (NEGATIVE); BARBITURATE SCREEN URINE NEGATIVE (NEGATIVE); BENZODIAZEPINES SCREEN URINE NEGATIVE (NEGATIVE); CANNABINOID SCREEN, URINE NEGATIVE (NEGATIVE); COCAINE SCREEN URINE NEGATIVE (NEGATIVE); METHADONE STAT NEGATIVE (NEGATIVE); OPIATE SCREEN URINE NEGATIVE (NEGATIVE); OXYCODONE STAT NEGATIVE (NEGATIVE); PROPOXYPHENE STAT NEGATIVE (NEGATIVE); TRICYCLIC ANTIDEPRESSANTS SCRE NEGATIVE (NEGATIVE)
[2022-04-29 19:24] VITALS: BP 133/89
== END 2022-04-29 19:22 | disposition home or self-care (01) ==
LOC: EDUNIT# 15:08 → ER 15:12
DX: F10.20 Alcohol dependence, uncomplicated (principal); R45.851 Suicidal ideations; F32.A Depression, unspecified; F17.220 Nicotine dependence, chewing tobacco, uncomplicated; F17.210 Nicotine dependence, cigarettes, uncomplicated; Z79.899 Other long term (current) drug therapy; Z91.14 Patient's other noncompliance with medication regimen; Y90.8 Blood alcohol level of 240 mg/100 ml or more
CPT/HCPCS: 80053; 80306; 81000; 85025; 93005; 99283; G0480 ×3; 36415; 80320; 80329